=== PATIENT | female | born 1965 | race American Indian/Alaskan Native ===

== ENCOUNTER 2019-11-08 09:24 | Day surgery (SDC) | payer OTHER ==
[~2019-11-08 09:24] MED LIST: SODIUM CHLORIDE 0.9% 1000 ML 1,000 ML IV SCH
[2019-11-08] MEDS ORDERED: WATER FOR IRRIG STERILE 1,000 ML BOTTLE ONE (10:43)
[2019-11-08] MEDS ORDERED: WATER FOR IRRIG STERILE 250 ML BOTTLE IR ONE (10:43)
--- NOTE | 2019-11-08 10:55 | Anesthesia Consultation ---
Anesthesia Consult and Med Hx Date of service: 11/08/19 - Airway Anesthetic Teeth Evaluation: Good ROM Head & Neck: Adequate Mental/Hyoid Distance: Adequate Mallampati Class: Class II Intubation Access Assessment: Good - Pulmonary Exam CTA: Yes - Cardiac Exam Cardiac Exam: RRR - Pre-Operative Health Status ASA Pre-Surgery Classification: ASA1 Proposed Anesthetic Plan: General
--- NOTE | 2019-11-08 10:55 | Anesthesia Day of Surgery ---
Anesthesia Day of Surgery - Day of Surgery Patient Examined: Yes Patient H&P Reviewed: Yes Patient is NPO: Yes
--- NOTE | 2019-11-08 10:58 | Operative Report ---
Operative Report Operative Report: Colonoscopy with polyp ablation and multiple hot biopsy polypectomies DATE:11/08/2019 ATTENDING PHYSICIAN: Delbert Trevizo M.D. CORRUGATED BOX MACHINE OPERATOR: Delbert Trevizo M.D. INDICATIONS: Patient is a 54y.o. female who presents for colorectal cancer screening . A colonoscopy is done to evaluate patient so that treatment may be directed based on the findings. CONSENT: Informed consent was obtained after the patient was advised regarding the nature of this procedure, its indications, potential benefits as well as possible complications including but not limited to bleeding, perforation, adverse reaction to medications, infection as well as cardiopulmonary complications. An informed written and verbal consent was then obtained after due opportunity was provided for questions and answers. MONITORING: Patient monitored continuously with pulse oximetry, electrocardiographic recordings as well as automatic blood pressure recordings. Patient remained stable throughout the procedure with no untoward events. PREOPERATIVE ASSESSMENT: Patient was assessed immediately prior to this procedure for capacity to tolerate moderate sedation/monitored anesthesia care. [place] [employer] classification is 2. Mallampati class is 2. Hyomental distance is 3. INSTRUMENT: Olympus video colonoscope [id number]. MEDICATIONS: Propofol given intravenously in divided doses. For details, please refer to anesthesia records. DESCRIPTION OF PROCEDURE: Patient was placed in the left lateral decubitus position, after achieving sedation, a digital rectal examination was performed following which the colonoscope was introduced into the anal verge and advanced under direct visualization to the cecum which was identified by the ileocecal valve, the appendiceal orifice, the cecal strap as well as by direct transillumination in the right lower quadrant. Color texture mucosa and anatomy of the colon were carefully examined with the colonoscope. The colonoscope was then gently withdrawn with careful inspection of all mucosa surfaces. The patient tolerated the procedure well with no complications. After completion of the examination, patient was transferred to the recovery room. The prep written regimen was GoLYTELY and the preparation was fair. The [place] prep scale score was 6 and the preparation was deemed adequate. The following findings were noted. FINDINGS: Patient had 6 mm polyp in the sigmoid colon which was removed by hot biopsy polypectomy. Patient also had 3 additional diminutive polyps in the rectum which were removed by hot biopsy polypectomy. These measured between 4 to 5 mm in size. All polyps were flat. Patient also had a diminutive polyp in the rectum which was ablated completely. On the retroflexed view at the anal verge patient had internal hemorrhoids. IMPRESSION: Sigmoid colon polyp status post hot biopsy polypectomy. Multiple diminutive rectal polyps status post hot biopsy polypectomy. Internal Hemorrhoids . PLAN: Follow-up pathology report High fiber diet. Repeat colonoscopy in 5 years, if the polyps are adenomatous
--- NOTE | 2019-11-08 10:59 | Discharge Summary ---
Short Stay Discharge Plan Activity: advance as tolerated Weight Bearing Status: Weight Bear as Tolerated Diet: regular (Should) Follow up with: [facility] [Primary Care Provider] - 7 Days
[2019-11-08] MEDS ORDERED: propofoL 200 MG/20 ML VIAL IV ONE ×3 (11:03→11:23)
[2019-11-08] MEDS ORDERED: LIDOCAINE (2%) 20 MG/1 ML VIAL 20 ML MDV INFILTRATI ONE (11:03)
[2019-11-08 11:49] VITALS: BP 106/70
--- NOTE | 2019-11-08 12:35 | Post Anesthesia Evaluation ---
- Post Anesthesia Evaluation Patient Participated: Yes Airway Patent: Yes Stable Respiratory Function: Yes Nausea/Vomiting: No Temp > 96.8F: Yes Pain Manageable: Yes Adequeate Hydration: Yes Anesthesia Complications: No
== END 2019-11-08 09:25 | disposition home or self-care (01) ==
LOC: GIO 09:24
PROVIDERS: ATTEND Internal Medicine Gastroenterology
DX: Z12.11 Encounter for screening for malignant neoplasm of colon (principal); K63.5 Polyp of colon; K62.1 Rectal polyp; K63.89 Other specified diseases of intestine; K64.8 Other hemorrhoids; Z79.899 Other long term (current) drug therapy
CPT/HCPCS: 45384; 45388; 88305; J2704; J7030